=== PATIENT | male | born 1960 | race Caucasian/White ===

== ENCOUNTER 2019-08-22 08:29 | Outpatient (CLI) | payer OTHER, SELFPAY ==
[2019-08-22 09:16] LABS: Hemoglobin A1C 5.9 % (<5.7)
[2019-08-22 09:34] LABS: Alanine Aminotransferase 38 U/L (16-63); Albumin Level 3.5 g/dL (3.4-5.0); Alkaline Phosphatase 50 U/L (46-116); Anion Gap 10.8 mmol/L (7-16); Aspartate Amino Transferase 16 U/L (15-37); Bilirubin,Total 0.6 mg/dL (0.00-1.00); Blood Urea Nitrogen 24 mg/dL (7-18); Calcium 9.1 mg/dL (8.5-10.1); Carbon Dioxide 30 mmol/L (21-32); Chloride 102 mmol/L (98-108); Estimated Glomerular Filt Rate > 60; Glucose 99 mg/dL (70-99); Osmolality Calculated 290 mOsm/kg (285-295); Potassium 4.8 mmol/L (3.5-5.1); Prostate Specific Antigen 4.6 ng/mL (< OR = 4.0); Sodium 138 mmol/L (136-145); Total Protein 6.7 g/dL (6.4-8.2)
== END 2019-08-22 08:30 | disposition home or self-care (01) ==
PROVIDERS: PCP Internal Medicine; Visit Provider Internal Medicine
DX: R97.20 Elevated prostate specific antigen [PSA] (principal); R73.01 Impaired fasting glucose
CPT/HCPCS: 36415; 80053; 83036; 84153

== ENCOUNTER 2020-02-10 09:35 | Outpatient (CLI) | payer OTHER, SELFPAY ==
[2020-02-10 09:48] LABS: Appearance Urine Clear (Clear); Bilirubin Urine Negative (Negative); Color Urine Yellow (Yellow); Glucose Urine UA Negative (Negative); Ketones Urine Negative (Negative); Leukocyte Esterase Ur Negative (Negative); Nitrate Urine Negative (Negative); Protein Urine Negative (Negative); Specific Grav Ur 1.025 (1.010-1.020); Urobilinogen Urine 0.2 mg/dL (0.2-1.0); pH Urine 5.5 (5.0-8.0)
[2020-02-10 10:04] LABS: Add Urine Microscopic? YES; Blood Urine Trace-Intact (Negative); RBC Urine 0-2 /hpf (0-2)
[2020-02-10 10:05] LABS: Bacteria Urine None seen /hpf; Mucus Urine Few /lpf; Squamous Epithelial Cell Urine Rare /hpf (Few); WBC Urine None seen /hpf (0-3)
[2020-02-10 10:12] LABS: Hemoglobin A1C 5.8 % (<5.7)
[2020-02-10 11:28] LABS: Alanine Aminotransferase 44 U/L (16-63); Albumin Level 3.9 g/dL (3.4-5.0); Alkaline Phosphatase 48 U/L (46-116); Anion Gap 7 mmol/L (8-16); Aspartate Amino Transferase 18 U/L (15-37); Bilirubin,Total 0.9 mg/dL (0.00-1.00); Blood Urea Nitrogen 25 mg/dL (7-18); Carbon Dioxide 27 mmol/L (21-32); Chloride 102 mmol/L (98-108); Cholesterol 197 mg/dL (0-200); Creatine Kinase 113 U/L (39-308); Estimated Glomerular Filt Rate > 60; Glucose 91 mg/dL (70-99); HDL Direct 46 mg/dL (40-60); LDL Cholesterol Calculated 130 mg/dL (<130); Magnesium 1.9 mg/dL (1.8-2.4); Osmolality Calculated 286 mOsm/kg (285-295); Potassium 4.8 mmol/L (3.5-5.1); Prostate Specific Antigen 3.2 ng/mL (< OR = 4.0); Sodium 136 mmol/L (136-145); Total Protein 7.2 g/dL (6.4-8.2); Triglycerides 106 mg/dL (0-150)
== END 2020-02-10 09:36 | disposition home or self-care (01) ==
LOC: CHSLAB 09:37
PROVIDERS: PCP Internal Medicine; Visit Provider Internal Medicine
DX: R73.01 Impaired fasting glucose (principal); I49.3 Ventricular premature depolarization; I10 Essential (primary) hypertension; R97.20 Elevated prostate specific antigen [PSA]
CPT/HCPCS: 36415; 80053; 80061; 81001; 82550; 83036; 83735; 84153

== ENCOUNTER 2020-05-29 15:25 | Outpatient (CLI) | payer OTHER, SELFPAY ==
--- NOTE | ~2020-05-29 | XR_ITS ---
EXAMINATION:XR_CERV2-3V_CR DATE: 05/29/2020 15:52 INDICATION: Neck pain TECHNIQUE: AP, lateral, and odontoid views of the cervical spine are provided. COMPARISON: None FINDINGS: There are 2 mm of retrolisthesis of C5 on C6. The odontoid is intact. No fracture is identi fied. The vertebral body heights are normal. There is moderate to severe loss of intervertebral disc space height at C5-6 and C6-7. Degenerative osteophytes project from the anterior endplates at these levels. The odontoid is intact. Prevertebral soft tissues are normal. There is severe uncovertebral j oint osteoarthritis at C5-6 and C6-7. IMPRESSION: 1. Severe cervical spondylosis at C5-6 and C6-7 without acute findings. Reviewed, dictated and finalized at location A.
== END 2020-05-29 15:26 | disposition home or self-care (01) ==
LOC: CHSIMG 15:27
PROVIDERS: PCP Internal Medicine; Visit Provider Internal Medicine
DX: M54.2 Cervicalgia (principal)
CPT/HCPCS: 72040

== ENCOUNTER → 2020-06-08 14:45 | Outpatient (CLI) | payer OTHER, SELFPAY ==
--- NOTE | ~2020-06-08 | MR_ITS ---
EXAMINATION: MR cervical spine wo con DATE: 06/08/2020 15:28 INDICATION: Neck pain. TECHNIQUE: Magnetic resonance imaging (MRI) of the cervical spine was performed without intravenous c ontrast. Sequences included sagittal T2-weighted FSE, sagittal STIR FSE, sagittal T1-weighted FSE, ax ial MERGE, and axial T2-weighted FSE. COMPARISON: Cervical spine radiograph 05/29/2020 FINDINGS: There is 4 degrees dextrocurvature of cervical spine. There is hypolordosis of cervical spi ne. Vertebral body heights are normal. There is moderately decreased disc height at C5-C6 and C6-C7. There is increased T2-weighted signal intensity in the spinal cord at C5-C6, consistent with myelomal acia. The following disc levels are specifically discussed: C2-C3: The disc does not extend beyond the endplate margin. There is mild left uncovertebral joint os teoarthritis. There is moderate bilateral facet joint osteoarthritis. There is mild left neural kimmy inal stenosis. There is no central canal stenosis. C3-C4: The disc is bulging. There is severe bilateral uncovertebral joint osteoarthritis. There is se lynette bilateral facet joint osteoarthritis. There is severe right and moderate left neural foraminal s tenosis. There is mild central canal stenosis with ventral indentation of the spinal cord. C4-C5: The disc is bulging. There is mild bilateral uncovertebral joint osteoarthritis. There is mild right and moderate left facet joint osteoarthritis. There is mild bilateral neural foraminal stenosi s. There is mild central canal stenosis with ventral indentation of the spinal cord. C5-C6: The disc is bulging. There is severe bilateral uncovertebral joint osteoarthritis. There is se lynette right and mild left facet joint osteoarthritis. There is severe bilateral neural foraminal steno sis. There is moderate central canal stenosis with ventral and dorsal indentation of the spinal cord. C6-C7: The disc is bulging. There is severe bilateral uncovertebral joint osteoarthritis. There is mi ld bilateral facet joint osteoarthritis. There is mild bilateral neural foraminal stenosis. There is mild central canal stenosis. C7-T1: The disc does not extend beyond the endplate margin. There is mild left uncovertebral joint os teoarthritis. There is moderate bilateral facet joint osteoarthritis. There is mild left neural kimmy inal stenosis. There is no central canal stenosis. IMPRESSION: 1. Myelomalacia at C5-C6. 2. Severe cervical spondylosis. Reviewed, dictated and finalized at location A.
== END ==
PROVIDERS: PCP Internal Medicine; Visit Provider Internal Medicine
DX: M47.892 Other spondylosis, cervical region (principal)
CPT/HCPCS: 72141

== ENCOUNTER 2021-01-15 07:52 | Outpatient (CLI) | payer OTHER, SELFPAY ==
[2021-01-15 08:01] LABS: Basophils Absolute Auto 0.04 K/mm3 (0.00-0.10); Basophils Percent Auto 0.6 % (0.0-1.0); Eosinophils Absolute Auto 0.15 K/mm3 (0.02-0.50); Eosinophils Percent Auto 2.2 % (1.0-6.0); Hematocrit 43.9 % (40.0-54.0); Hemoglobin 14.6 g/dL (14.0-18.0); Immature Granulocyte Absolute 0.01 K/mm3 (0.00-0.00); Immature Granulocyte Percent A 0.1 % (0.0-0.0); Lymphocytes Absolute Auto 2.22 K/mm3 (1.10-4.50); Lymphocytes Percent Auto 33.1 % (18.0-42.0); Mean Corpuscular HGB Conc 33.3 g/dL (32.0-36.0); Mean Corpuscular Hemoglobin 31.1 pg (27.0-31.0); Mean Corpuscular Volume 93.6 fL (78.0-102.0); Mean Platelet Volume 9.2 fl (8.7-11.0); Monocytes Percent Auto 7.5 % (2.0-11.0); Neutrophils Absolute Auto 3.8 K/mm3 (1.7-7.2); Neutrophils Percent Auto 56.5 % (50.0-70.0); Platelet Count Result 225 K/mm3 (150-420); Red Blood Count 4.69 M/mm3 (4.70-6.10); Red Cell Distribution Width 13.2 % (11.6-14.4); White Blood Count 6.7 K/mm3 (4.8-10.8)
[2021-01-15 08:09] LABS: Appearance Urine Clear (Clear); Bilirubin Urine Negative (Negative); Color Urine Light Yellow (Yellow); Glucose Urine UA Negative (Negative); Ketones Urine Negative (Negative); Leukocyte Esterase Ur Negative (Negative); Nitrate Urine Negative (Negative); Protein Urine Negative (Negative); Specific Grav Ur 1.025 (1.010-1.020); Urobilinogen Urine 0.2 mg/dL (0.2-1.0)
[2021-01-15 08:22] LABS: Add Urine Microscopic? YES; Bacteria Urine Trace /hpf; Blood Urine Trace-Intact (Negative); RBC Urine None seen /hpf (0-2); WBC Urine None seen /hpf (0-3)
[2021-01-15 08:32] LABS: Creatinine Urine 90.94 mg/dL (40-278)
[2021-01-15 08:39] LABS: Hemoglobin A1C 5.9 % (<5.7)
[2021-01-15 09:03] LABS: MALB Creatinine Ratio 14.2 mg/g (0-30); Microalbumin Urine Random < 13.0 mg/L
[2021-01-15 09:38] LABS: Alanine Aminotransferase 42 U/L (16-63); Albumin Level 3.7 g/dL (3.4-5.0); Alkaline Phosphatase 50 U/L (46-116); Anion Gap 11 mmol/L (8-16); Aspartate Amino Transferase 18 U/L (15-37); Bilirubin,Total 0.9 mg/dL (0.00-1.00); Blood Urea Nitrogen 22 mg/dL (7-18); Calcium 8.7 mg/dL (8.5-10.1); Carbon Dioxide 25 mmol/L (21-32); Chloride 106 mmol/L (98-108); Cholesterol 190 mg/dL (0-200); Creatine Kinase 145 U/L (39-308); Estimated Glomerular Filt Rate > 60; Glucose 93 mg/dL (70-99); HDL Direct 43 mg/dL (40-60); LDL Cholesterol Calculated 136 mg/dL (<130); Osmolality Calculated 297 mOsm/kg (285-295); Potassium 4.6 mmol/L (3.5-5.1); Prostate Specific Antigen 5.4 ng/mL (< OR = 4.0); Sodium 142 mmol/L (136-145); Total Protein 6.7 g/dL (6.4-8.2); Triglycerides 53 mg/dL (0-150)
== END 2021-01-15 07:53 | disposition home or self-care (01) ==
LOC: CHSLAB 07:53
PROVIDERS: PCP Internal Medicine; Visit Provider Internal Medicine
DX: Z00.00 Encounter for general adult medical examination without abnormal findings (principal); R97.20 Elevated prostate specific antigen [PSA]
CPT/HCPCS: 36415; 80053; 80061; 81001; 82043; 82550; 83036; 84153; 85025

== ENCOUNTER 2021-01-29 11:16 | Outpatient (CLI) | payer OTHER, SELFPAY ==
[2021-02-02 13:40] LABS: Vitamin D 25 Hydroxy 33 ng/mL (30-100)
== END 2021-01-29 11:17 | disposition home or self-care (01) ==
LOC: CHSLAB 11:17
PROVIDERS: PCP Internal Medicine; Visit Provider Internal Medicine
DX: E55.9 Vitamin D deficiency, unspecified (principal)
CPT/HCPCS: 36415; 82306

== ENCOUNTER 2021-02-12 10:05 | Outpatient (CLI) | payer OTHER, SELFPAY ==
--- NOTE | ~2021-02-12 | CT_ITS ---
EXAMINATION: CT sinus wo con DATE: 02/12/2021 10:19 INDICATION: Chronic pansinusitis TECHNIQUE: Computed tomography (CT) of the paranasal sinuses was performed without intravenous contra st. The dose-length product was 283.39 mGy-cm. Automated exposure control and iterative reconstructio n technique were employed. COMPARISON: None FINDINGS: There is mild mucosal thickening of the left frontal and ethmoid sinuses. No air-fluid leve ls. Rightward nasal septal deviation. Ostiomeatal units are patent. Mastoids are pneumatized. IMPRESSION: 1. Mild left frontal and ethmoid sinus disease. Reviewed, dictated and finalized at location A. 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
== END 2021-02-12 10:06 | disposition home or self-care (01) ==
LOC: CHSIMG 10:05
PROVIDERS: PCP Internal Medicine; Visit Provider Internal Medicine
DX: J32.4 Chronic pansinusitis (principal)
CPT/HCPCS: 70486

== ENCOUNTER 2021-04-25 07:46 | Outpatient (CLI) | payer OTHER, SELFPAY ==
[2021-04-25 13:05] LABS: Prostate Specific Antigen 5.1 ng/mL (< OR = 4.0)
== END 2021-04-25 07:47 | disposition home or self-care (01) ==
LOC: CHSLAB 07:48
PROVIDERS: PCP Internal Medicine; Visit Provider Internal Medicine
DX: R97.20 Elevated prostate specific antigen [PSA] (principal)
CPT/HCPCS: 36415; 84153

== ENCOUNTER 2021-05-02 00:11 | Day surgery (SDC) | payer OTHER, SELFPAY ==
[2021-03-18 14:57] VITALS: BMI 28.4
--- NOTE | 2021-05-01 12:00 | P.PNAN_ITS ---
Anes - Initial Pre Proc Eval Procedure: Operation Date: 05/02/21 10:15 Proposed Procedures p Screening Colonoscopy - Moy Quispe MD Date/Time: 05/01/21 12:00 Surgeon: Moy Quispe MD Pre Op Diagnosis: hx of colon polyps, neoplasm screening Patient Data Age: 60 Gender: M Height: 1.83 m Weight: 95 kg Allergies Allergy/AdvReac Type Severity Reaction Status Date / Time No Known Allergies Allergy Verified 05/02/21 09:24 Home Medications Medication Instructions Recorded Confirmed Type aspirin 81 mg tablet,delayed 81 mg PO DAILY 02/19/21 05/02/21 History release cholecalciferol (vitamin D3) 25 25 mcg PO DAILY 02/19/21 05/02/21 History mcg (1,000 unit) capsule diclofenac sodium 75 mg 75 mg PO BID PRN 02/19/21 05/02/21 History tablet,delayed release fluticasone propionate 50 1 spray INTRANASAL DAILY 02/19/21 05/02/21 History mcg/actuation nasal spray,suspension ipratropium bromide 42 mcg (0.06 2 spray INTRANASAL TID 02/19/21 05/02/21 History %) nasal spray lisinopril 20 mg tablet 20 mg PO DAILY 02/19/21 05/02/21 History lovastatin 20 mg tablet 20 mg PO DAILY 02/19/21 05/02/21 History niacin 500 mg tablet 500 mg PO DAILY 02/19/21 05/02/21 History magnesium oxide 400 mg PO 3XW 03/18/21 05/02/21 History tamsulosin 0.8 mg PO DAILY 03/18/21 05/02/21 History Patient hx anesthesia problems: none Family hx anesthesia problems: none Results Review: All pre-operative results and documents have been reviewed as part of the pre-operative evaluation. [facility] Past Medical History Medical History (Updated 05/02/21 @ 09:39 by Moy Quispe MD) Arrhythmia Hyperlipidemia Hypertension Rheumatoid arthritis Family History Family History Father Cancer Hypertension Heart disease Cerebrovascular accident Mother Diabetes mellitus Hypertension Sibling Hypertension Social History Social History Smoking packs per day: 1 Smoking cigarettes per day: 20.0 Years smoked: 15 Smoking pack-years: 15.00 Smoking status: Never smoker Tobacco type: cigarettes Alcohol intake: current Drinks per week: 1 Alcohol use details: occassion Substance use: never Substance use type: does not use Living arrangements: with family Spiritual care concerns: No Anes - Eval Final PreProcedure Day of Procedure 05/01/21 12:00 Patient weight: overweight Heart: regular rate and rhythm Lungs: clear to auscultation and normal air movement Airway: Mallampati scale class II Neurological: alert and oriented Last oral intake: >/= 8 hours ASA classification: III Emergent: no Anesthetic plan: proceed Anesthesia type and monitoring: general GIVS and standard monitoring Results Review: All pre-operative results and documents have been reviewed as part of the pre-operative evaluation. Informed Consent: The patient's anesthetic plan and its attendant risks and benefits were discussed with the patient/family/POA. Questions were solicited and answers provided to the satisfaction of the patient/family/POA.
[2021-05-02 09:15] VITALS: BP 136/79; PULSE 81; RESP 18; TEMP 37.1; O2SAT 99; BMI 28.3
[2021-05-02] MEDS: LACTATED RINGERS 1,000 ML 150 ML IV CONT (09:34)
--- NOTE | 2021-05-02 09:37 | WPDGICN ---
Assessment and Plan Assessment and plan (1) History of colon polyps: Code(s): Z86.010 - Personal history of colonic polyps Status: Acute Assessment and Plan: Patient has a personal history of colon polyp some years ago. He presents today for surveillance examination. (2) Family history of colon cancer in father: Code(s): Z80.0 - Family history of malignant neoplasm of digestive organs Status: Acute Assessment and Plan: Patient's father had colon cancer. Plan is for patient to have surveillance colonoscopy at 5 year intervals. GI Consult Note Consult date/time: 05/02/21 09:37 HPI: Pete Knight is a 60 year old male Presents for screening colonoscopy. Patient reports his weight appetite and bowel movements are normal. He denies abdominal pain. He he has had no bleeding. In the past he had colon polyps. Most recent colonoscopy 2015 revealed no polyps. Family history is significant for polyps, his father had colon cancer. Patient presents today for neoplasia screening. Review of Systems Review of Systems: All systems reviewed & are unremarkable except as noted in HPI and below PMFSH Past Medical History Medical History (Updated 05/02/21 @ 09:39 by Moy Quispe MD) Arrhythmia Hyperlipidemia Hypertension Rheumatoid arthritis Family History Family History Father Cancer Hypertension Heart disease Cerebrovascular accident Mother Diabetes mellitus Hypertension Sibling Hypertension Social History Social History Smoking packs per day: 1 Smoking cigarettes per day: 20.0 Years smoked: 15 Smoking pack-years: 15.00 Smoking status: Never smoker Tobacco type: cigarettes Alcohol intake: current Drinks per week: 1 Alcohol use details: occassion Substance use: never Substance use type: does not use Living arrangements: with family Spiritual care concerns: No Meds Home Medications and Allergies Home Medications Medication Instructions Recorded Confirmed Type aspirin 81 mg tablet,delayed 81 mg PO DAILY 02/19/21 05/02/21 History release cholecalciferol (vitamin D3) 25 25 mcg PO DAILY 02/19/21 05/02/21 History mcg (1,000 unit) capsule diclofenac sodium 75 mg 75 mg PO BID PRN 02/19/21 05/02/21 History tablet,delayed release fluticasone propionate 50 1 spray INTRANASAL DAILY 02/19/21 05/02/21 History mcg/actuation nasal spray,suspension ipratropium bromide 42 mcg (0.06 2 spray INTRANASAL TID 02/19/21 05/02/21 History %) nasal spray lisinopril 20 mg tablet 20 mg PO DAILY 02/19/21 05/02/21 History lovastatin 20 mg tablet 20 mg PO DAILY 02/19/21 05/02/21 History niacin 500 mg tablet 500 mg PO DAILY 02/19/21 05/02/21 History magnesium oxide 400 mg PO 3XW 03/18/21 05/02/21 History tamsulosin 0.8 mg PO DAILY 03/18/21 05/02/21 History Allergies Allergy/AdvReac Type Severity Reaction Status Date / Time No Known Allergies Allergy Verified 05/02/21 09:24 Vital Signs Vital Signs - 24 hr 05/02/21 09:15 Temperature 98.7 F Pulse Rate 81 Respiratory Rate 18 Blood Pressure 136/79 Pulse Oximetry 99 Exam Narrative: Physical exam reveals patient to be alert. Vital signs stable. HEENT exam is unremarkable. Patient is anicteric. Lungs are clear to auscultation and percussion. Heart is without murmur or extra sounds. Abdominal exam bowel sounds are present soft nontender with no organomegaly. Digital external rectal exam is normal.
[2021-05-02 10:31] VITALS: BP 114/73; PULSE 88; RESP 19; O2SAT 97
[2021-05-02 10:41] VITALS: BP 132/86; PULSE 82; RESP 25; O2SAT 97
[2021-05-02 10:51] VITALS: BP 127/83; PULSE 78; RESP 23; O2SAT 98
== END 2021-05-02 10:58 | disposition home or self-care (01) ==
PROVIDERS: PCP Internal Medicine; Visit Provider Internal Medicine Gastroenterology
PROC: 0DJD8ZZ Inspection of Lower Intestinal Tract, Via Natural or Artificial Opening Endoscopic (ICD-10-PCS; CPT 45378; principal; 2021-05-02 10:15)
DX: Z12.11 Encounter for screening for malignant neoplasm of colon (principal); K57.30 Diverticulosis of large intestine without perforation or abscess without bleeding; Z86.010 Personal history of colon polyps; Z80.0 Family history of malignant neoplasm of digestive organs; E78.5 Hyperlipidemia, unspecified; I10 Essential (primary) hypertension; M06.9 Rheumatoid arthritis, unspecified; Z87.891 Personal history of nicotine dependence
CPT/HCPCS: 45378; J2704; J7120

== ENCOUNTER 2021-07-04 13:38 | Outpatient (CLI) | payer OTHER, SELFPAY ==
[2021-07-04 14:48] LABS: SARS-CoV-2 RNA PCR Positive (Negative)
== END 2021-07-04 13:39 | disposition home or self-care (01) ==
LOC: CHSLAB 13:40
PROVIDERS: PCP Internal Medicine; Visit Provider Nurse Practitioner Family
DX: U07.1 COVID-19 (principal); J06.9 Acute upper respiratory infection, unspecified; R50.9 Fever, unspecified
CPT/HCPCS: C9803; U0003; U0005

== ENCOUNTER 2021-07-11 16:33 | Outpatient (CLI) | payer OTHER, SELFPAY ==
--- NOTE | ~2021-07-11 | XR_ITS ---
EXAMINATION: XR sacroiliac joints min 3V DATE: 07/11/2021 16:57 INDICATION: Low back pain. Sacroiliac joint arthritis. TECHNIQUE: 3 views of the sacroiliac joints were obtained. COMPARISON: None. FINDINGS: Bone alignment is normal. No fracture. There is mild osteoarthritis of the sacroiliac joint s. No evidence of inflammatory arthropathy. IMPRESSION: 1. Mild osteoarthritis of the sacroiliac joints. Reviewed, dictated and finalized at location A.
--- NOTE | ~2021-07-11 | XR_ITS ---
XR lumbar spine 2-3V 07/11/2021 16:57 Indication: Low back pain. Arthritis. Procedure: 3 views lumbar spine Comparison: 08/18/2018 Findings: There is disc narrowing at L3-4, L4-5 and L5-S1. There is facet hypertrophy at these levels . No acute fracture or traumatic malalignment. No evidence for spondylolisthesis. Pedicles intact. Sa cral foramen are symmetric. Impression: 1: Mild-moderate lumbar spondylosis. Reviewed, dictated and finalized at location B. Impression: 1: Mild-moderate lumbar spondylosis.
== END 2021-07-11 16:34 | disposition home or self-care (01) ==
LOC: CHSIMG 16:35
PROVIDERS: PCP Internal Medicine; Visit Provider Internal Medicine
DX: M54.50 Low back pain, unspecified (principal)
CPT/HCPCS: 72100; 72202

== ENCOUNTER 2021-07-30 09:20 | Outpatient (CLI) | payer OTHER, SELFPAY ==
--- NOTE | ~2021-07-30 | XR_ITS ---
EXAMINATION: XR sacroiliac jt inj w imag LT DATE: 07/30/2021 10:33 INDICATION: Left-sided lumbar radiculopathy and sciatica. TECHNIQUE: A time-out was performed to verify the patient's name, date of , and procedure to b e performed. The procedure including the risks, benefits, and alternatives was discussed with the pat ient. Risks discussed included bleeding and infection. The patient understood the risks and agreed to proceed. The skin overlying the left sacroiliac joint was prepped and draped in usual sterile fashi on. Anesthetic was administered with 1% lidocaine subcutaneously. A 22 G needle was advanced under fluoroscopic guidance into the joint. Subsequently, injectate consisting of 1 mL 1% lidocaine, 1 mL 4 0 mg/mL Kenalog, and 1 mL 4 mg/mL dexamethasone was instilled. The needle was removed and the entry site was cleaned and dressed. There were no immediate complications. Fluoroscopy exposure time was 0 .0 minutes. The total number of images was 1. FINDINGS: Real-time fluoroscopy demonstrates the needle in the left sacroiliac joint. Patient's pain prior to procedure:1/10. Patient's pain following the procedure: 0/10. IMPRESSION: 1. Fluoroscopy guided left sacroiliac joint injection of local anesthetic and steroid with decrease i n the patient's presenting pain. Reviewed, dictated and finalized at location A. IMPRESSION: 1. Fluoroscopy guided left sacroiliac joint injection of local anesthetic and s teroid with decrease in the patient's presenting pain.
== END 2021-07-30 09:21 | disposition home or self-care (01) ==
PROVIDERS: PCP Internal Medicine; Visit Provider Internal Medicine
DX: M54.16 Radiculopathy, lumbar region (principal)
CPT/HCPCS: 27096; G0260; J1100; J3301

== ENCOUNTER 2021-08-01 07:08 | Outpatient (CLI) | payer OTHER, SELFPAY ==
[2021-08-01 07:35] LABS: Basophils Absolute Auto 0.07 K/mm3 (0.00-0.10); Basophils Percent Auto 0.8 % (0.0-1.0); Eosinophils Absolute Auto 0.15 K/mm3 (0.02-0.50); Eosinophils Percent Auto 1.7 % (1.0-6.0); Hematocrit 40.5 % (40.0-54.0); Hemoglobin 13.4 g/dL (14.0-18.0); Immature Granulocyte Absolute 0.03 K/mm3 (0.00-0.00); Immature Granulocyte Percent A 0.3 % (0.0-0.0); Lymphocytes Absolute Auto 3.58 K/mm3 (1.10-4.50); Lymphocytes Percent Auto 40.1 % (18.0-42.0); Mean Corpuscular HGB Conc 33.1 g/dL (32.0-36.0); Mean Corpuscular Hemoglobin 31.3 pg (27.0-31.0); Mean Corpuscular Volume 94.6 fL (78.0-102.0); Mean Platelet Volume 9.6 fl (8.7-11.0); Monocytes Absolute Auto 0.65 K/mm3 (0.10-0.90); Monocytes Percent Auto 7.3 % (2.0-11.0); Neutrophils Absolute Auto 4.5 K/mm3 (1.7-7.2); Neutrophils Percent Auto 49.8 % (50.0-70.0); Platelet Count Result 232 K/mm3 (150-420); Red Blood Count 4.28 M/mm3 (4.70-6.10); Red Cell Distribution Width 13.2 % (11.6-14.4); White Blood Count 8.9 K/mm3 (4.8-10.8)
[2021-08-01 07:36] LABS: Add Urine Microscopic? NO; Appearance Urine Clear (Clear); Bilirubin Urine Negative (Negative); Blood Urine Negative (Negative); Color Urine Yellow (Yellow); Glucose Urine UA Negative (Negative); Ketones Urine Negative (Negative); Leukocyte Esterase Ur Negative (Negative); Nitrate Urine Negative (Negative); Protein Urine Negative (Negative); Specific Grav Ur 1.025 (1.010-1.020); Urobilinogen Urine 0.2 mg/dL (0.2-1.0)
[2021-08-01 08:08] LABS: Alanine Aminotransferase 42 U/L (16-63); Albumin Level 3.6 g/dL (3.4-5.0); Alkaline Phosphatase 50 U/L (46-116); Anion Gap 10 mmol/L (8-16); Aspartate Amino Transferase 17 U/L (15-37); Bilirubin,Total 0.7 mg/dL (0.00-1.00); Blood Urea Nitrogen 27 mg/dL (7-18); Calcium 8.4 mg/dL (8.5-10.1); Carbon Dioxide 26 mmol/L (21-32); Chloride 106 mmol/L (98-108); Cholesterol 168 mg/dL (0-200); Creatine Kinase 175 U/L (39-308); Estimated Glomerular Filt Rate > 60; Free T3 2.76 pg/mL (2.18-3.98); Glucose 96 mg/dL (70-99); HDL Direct 40 mg/dL (40-60); LDL Cholesterol Calculated 114 mg/dL (<130); Osmolality Calculated 299 mOsm/kg (285-295); Potassium 4.1 mmol/L (3.5-5.1); Sodium 142 mmol/L (136-145); Thyroid Stimulating Hormone 3.66 uIU/mL (0.36-3.74); Triglycerides 72 mg/dL (0-150)
== END 2021-08-01 07:09 | disposition home or self-care (01) ==
LOC: CHSLAB 07:11
PROVIDERS: PCP Internal Medicine; Visit Provider Internal Medicine
DX: E78.2 Mixed hyperlipidemia (principal); I10 Essential (primary) hypertension; R73.01 Impaired fasting glucose; I49.3 Ventricular premature depolarization; J32.4 Chronic pansinusitis
CPT/HCPCS: 36415; 80053; 80061; 81003; 82550; 83036; 83735; 84439; 84443; 84481; 85025

== ENCOUNTER 2021-08-19 10:17 | Outpatient (CLI) | payer OTHER, SELFPAY ==
[2021-08-19 10:33] LABS: Immature Reticulocyte Fraction 8.1 % (2.0-16.52); Reticulocyte Hemoglobin Conten 36.2 pg (28.0-35.0); Reticulocyte Percent 1.52 % (0.50-1.50); Reticulocytes Absolute 0.07 M/mm3 (0.02-0.1)
[2021-08-19 11:32] LABS: Ferritin 267 ng/mL (26-388); Iron 106 ug/dL (65-175); Percent Iron Saturation 41 % (12-57); Vitamin B12 338 pg/mL (193-986)
[2021-08-22 05:04] LABS: Red Blood Cell Folate 583 ng/mL RBC (>280)
== END 2021-08-19 10:18 | disposition home or self-care (01) ==
LOC: CHSLAB 10:19
PROVIDERS: PCP Internal Medicine; Visit Provider Internal Medicine
DX: I49.3 Ventricular premature depolarization (principal); D64.9 Anemia, unspecified
CPT/HCPCS: 36415; 82607; 82728; 82747; 83540; 83550; 85046

== ENCOUNTER 2021-10-29 10:49 | Outpatient (CLI) | payer OTHER, SELFPAY | END 2021-10-29 10:50 | disposition home or self-care (01) | LOC: CHSLAB 10:52 | PROVIDERS: PCP Internal Medicine; Visit Provider Specialist | DX: C44.41 Basal cell carcinoma of skin of scalp and neck (principal) | CPT/HCPCS: 88305 ==

== ENCOUNTER 2021-11-11 13:56 | Outpatient (CLI) | payer OTHER, SELFPAY ==
[2021-11-11 14:16] LABS: Basophils Absolute Auto 0.01 K/mm3 (0.00-0.10); Basophils Percent Auto 0.2 % (0.0-1.0); Eosinophils Absolute Auto 0.03 K/mm3 (0.02-0.50); Eosinophils Percent Auto 0.6 % (1.0-6.0); Hematocrit 41.4 % (40.0-54.0); Immature Granulocyte Absolute 0.01 K/mm3 (0.00-0.00); Immature Granulocyte Percent A 0.2 % (0.0-0.0); Lymphocytes Absolute Auto 1.43 K/mm3 (1.10-4.50); Lymphocytes Percent Auto 27.4 % (18.0-42.0); Mean Corpuscular HGB Conc 33.8 g/dL (32.0-36.0); Mean Corpuscular Volume 94.7 fL (78.0-102.0); Mean Platelet Volume 9.5 fl (8.7-11.0); Monocytes Absolute Auto 0.45 K/mm3 (0.10-0.90); Monocytes Percent Auto 8.6 % (2.0-11.0); Neutrophils Absolute Auto 3.3 K/mm3 (1.7-7.2); Platelet Count Result 180 K/mm3 (150-420); Red Blood Count 4.37 M/mm3 (4.70-6.10); Red Cell Distribution Width 12.9 % (11.6-14.4); White Blood Count 5.2 K/mm3 (4.8-10.8)
[2021-11-11 14:33] LABS: SARS-CoV-2 Ag Negative (Negative)
[2021-11-11 15:05] LABS: Alanine Aminotransferase 42 U/L (16-63); Albumin Level 3.7 g/dL (3.4-5.0); Alkaline Phosphatase 51 U/L (46-116); Anion Gap 6 mmol/L (8-16); Aspartate Amino Transferase 21 U/L (15-37); Bilirubin,Total 0.9 mg/dL (0.00-1.00); Blood Urea Nitrogen 21 mg/dL (7-18); Calcium 8.8 mg/dL (8.5-10.1); Carbon Dioxide 28 mmol/L (21-32); Chloride 105 mmol/L (98-108); Estimated Glomerular Filt Rate > 60; Free T3 2.68 pg/mL (2.18-3.98); Glucose 98 mg/dL (70-99); Magnesium 1.9 mg/dL (1.8-2.4); Osmolality Calculated 291 mOsm/kg (285-295); Sodium 139 mmol/L (136-145); Thyroid Stimulating Hormone 2.03 uIU/mL (0.36-3.74); Total Protein 6.5 g/dL (6.4-8.2); Vitamin B12 934 pg/mL (193-986)
[2021-11-12 16:41] LABS: Free T4 Free Thyroxine 0.89 ng/dL (0.76-1.46)
== END 2021-11-11 13:57 | disposition home or self-care (01) ==
LOC: CHSLAB 14:01
PROVIDERS: PCP Internal Medicine; Visit Provider Internal Medicine
DX: I49.3 Ventricular premature depolarization (principal); D64.9 Anemia, unspecified; J32.9 Chronic sinusitis, unspecified; Z20.822 Contact with and (suspected) exposure to COVID-19
CPT/HCPCS: 36415; 80053; 82607; 83735; 84439; 84443; 84481; 85025; 87426; C9803

== ENCOUNTER 2021-11-12 10:32 | Outpatient (CLI) | payer OTHER, SELFPAY ==
--- NOTE | 2021-12-05 12:47 | P.PCNHOL_ITS ---
Holter/Event Monitor Holter/Event Monitor Date of procedure: 12/05/21 Holter/Event Procedure: Event Monitor Indications: PVC Conclusion: 1. 18 days event monitor between 11/12/21-12/05/21. There are 28 available trans missions for analysis. 2. Predominant rhythm is sinus rhythm. HR range 52-175 bpm; average HR 84 bpm. HR at 175 bpm was on 11/23/21 at 14:59. 3. There are occasional premature supraventricular complexes with total burden of <1%. No supraventricular tachycardia. 4. There are occasional premature ventricular complexes with total burden of 1%. There is 1 episode of ventricular tachycardia at 109 bpm lasting 4 beats on 11/16/21 at 04:53. 5. No significant pauses greater than 2 seconds. 6. Patient reports 8 episodes of symptoms of skipped beat which demonstrate sinus rhythm, HR range 69-101 bpm with 7 episodes with PVC's.
== END 2021-11-12 10:33 | disposition home or self-care (01) ==
LOC: CHSCARD 10:34
PROVIDERS: PCP Internal Medicine; Visit Provider Internal Medicine
DX: R00.2 Palpitations (principal)
CPT/HCPCS: 93270

== ENCOUNTER 2022-03-27 08:34 | Outpatient (CLI) | payer OTHER, SELFPAY ==
[2022-03-27 08:47] LABS: Basophils Absolute Auto 0.04 K/mm3 (0.00-0.10); Basophils Percent Auto 0.6 % (0.0-1.0); Eosinophils Absolute Auto 0.14 K/mm3 (0.02-0.50); Hematocrit 42.9 % (40.0-54.0); Immature Granulocyte Absolute 0.01 K/mm3 (0.00-0.00); Immature Granulocyte Percent A 0.1 % (0.0-0.0); Lymphocytes Absolute Auto 2.41 K/mm3 (1.10-4.50); Lymphocytes Percent Auto 34.7 % (18.0-42.0); Mean Corpuscular HGB Conc 32.6 g/dL (32.0-36.0); Mean Corpuscular Hemoglobin 31.2 pg (27.0-31.0); Mean Corpuscular Volume 95.5 fL (78.0-102.0); Mean Platelet Volume 9.4 fl (8.7-11.0); Monocytes Absolute Auto 0.46 K/mm3 (0.10-0.90); Monocytes Percent Auto 6.6 % (2.0-11.0); Neutrophils Absolute Auto 3.9 K/mm3 (1.7-7.2); Platelet Count Result 209 K/mm3 (150-420); Red Blood Count 4.49 M/mm3 (4.70-6.10); Red Cell Distribution Width 13.2 % (11.6-14.4); White Blood Count 6.9 K/mm3 (4.8-10.8)
[2022-03-27 08:48] LABS: Add Urine Microscopic? NO; Appearance Urine Clear (Clear); Bilirubin Urine Negative (Negative); Blood Urine Negative (Negative); Color Urine Light Yellow (Yellow); Glucose Urine UA Negative (Negative); Ketones Urine Negative (Negative); Leukocyte Esterase Ur Negative LEU/UL (Negative); Nitrate Urine Negative (Negative); Protein Urine Negative (Negative); Specific Grav Ur 1.025 (1.010-1.020); Urobilinogen Urine 0.2 mg/dL (0.2-1.0)
[2022-03-27 08:59] LABS: Creatinine Urine 130.85 mg/dL (40-278); MALB Creatinine Ratio 9.9 mg/g (0-30); Microalbumin Urine Random < 13.0 mg/L
[2022-03-27 09:07] LABS: Hemoglobin A1C 5.8 % (<5.7)
[2022-03-27 09:33] LABS: Alanine Aminotransferase 32 U/L (16-63); Albumin Level 3.6 g/dL (3.4-5.0); Alkaline Phosphatase 50 U/L (46-116); Anion Gap 7 mmol/L (8-16); Aspartate Amino Transferase 19 U/L (15-37); Bilirubin,Total 0.8 mg/dL (0.00-1.00); Blood Urea Nitrogen 24 mg/dL (7-18); Calcium 8.4 mg/dL (8.5-10.1); Carbon Dioxide 29 mmol/L (21-32); Chloride 106 mmol/L (98-108); Cholesterol 164 mg/dL (0-200); Creatine Kinase 59 U/L (39-308); Estimated Glomerular Filt Rate > 60; Glucose 104 mg/dL (70-99); HDL Direct 46 mg/dL (40-60); LDL Cholesterol Calculated 108 mg/dL (<130); Osmolality Calculated 298 mOsm/kg (285-295); Potassium 4.6 mmol/L (3.5-5.1); Prostate Specific Antigen 5.3 ng/mL (< OR = 4.0); Sodium 142 mmol/L (136-145); Total Protein 6.6 g/dL (6.4-8.2); Triglycerides 50 mg/dL (0-150)
== END 2022-03-27 08:35 | disposition home or self-care (01) ==
LOC: CHSLAB 08:36
PROVIDERS: PCP Internal Medicine; Visit Provider Internal Medicine
DX: I10 Essential (primary) hypertension (principal); R73.01 Impaired fasting glucose; R97.20 Elevated prostate specific antigen [PSA]; E78.2 Mixed hyperlipidemia; N39.0 Urinary tract infection, site not specified
CPT/HCPCS: 36415; 80053; 80061; 81003; 82043; 82550; 83036; 84153; 85025

== ENCOUNTER 2022-09-26 08:00 | Outpatient (CLI) | payer OTHER, SELFPAY ==
[2022-09-26 08:14] LABS: Basophils Absolute Auto 0.04 K/mm3 (0.00-0.10); Basophils Percent Auto 0.6 % (0.0-1.0); Eosinophils Absolute Auto 0.09 K/mm3 (0.02-0.50); Eosinophils Percent Auto 1.4 % (1.0-6.0); Hematocrit 46.7 % (40.0-54.0); Hemoglobin 15.6 g/dL (14.0-18.0); Immature Granulocyte Absolute 0.02 K/mm3 (0.00-0.00); Immature Granulocyte Percent A 0.3 % (0.0-0.0); Lymphocytes Percent Auto 31.5 % (18.0-42.0); Mean Corpuscular HGB Conc 33.4 g/dL (32.0-36.0); Mean Corpuscular Hemoglobin 31.8 pg (27.0-31.0); Mean Corpuscular Volume 95.1 fL (78.0-102.0); Mean Platelet Volume 9.3 fl (8.7-11.0); Monocytes Absolute Auto 0.45 K/mm3 (0.10-0.90); Monocytes Percent Auto 6.8 % (2.0-11.0); Neutrophils Percent Auto 59.4 % (50.0-70.0); Platelet Count Result 226 K/mm3 (150-420); Red Blood Count 4.91 M/mm3 (4.70-6.10); Red Cell Distribution Width 13.2 % (11.6-14.4); White Blood Count 6.7 K/mm3 (4.8-10.8)
[2022-09-26 08:16] LABS: Appearance Urine Clear (Clear); Bilirubin Urine Negative (Negative); Blood Urine Negative (Negative); Color Urine Light Yellow (Yellow); Glucose Urine UA Negative (Negative); Ketones Urine Negative (Negative); Leukocyte Esterase Ur Negative (Negative); Nitrate Urine Negative (Negative); Protein Urine Negative (Negative); Specific Grav Ur >= 1.030 (1.010-1.020); Urobilinogen Urine 0.2 mg/dL (0.2-1.0)
[2022-09-26 08:19] LABS: Add Urine Microscopic? NO
[2022-09-26 08:41] LABS: Hemoglobin A1C 5.9 % (<5.7)
[2022-09-26 09:13] LABS: Alanine Aminotransferase 41 U/L (16-63); Albumin Level 4.1 g/dL (3.4-5.0); Alkaline Phosphatase 56 U/L (46-116); Anion Gap 9 mmol/L (8-16); Aspartate Amino Transferase < 10 U/L (15-37); Bilirubin,Total 0.7 mg/dL (0.00-1.00); Blood Urea Nitrogen 24 mg/dL (7-18); Calcium 9.6 mg/dL (8.5-10.1); Carbon Dioxide 29 mmol/L (21-32); Chloride 105 mmol/L (98-108); Cholesterol 189 mg/dL (0-200); Estimated Glomerular Filt Rate > 60; Free T3 3.07 pg/mL (2.18-3.98); Free T4 Free Thyroxine 0.93 ng/dL (0.76-1.46); Glucose 102 mg/dL (70-99); HDL Direct 49 mg/dL (40-60); LDL Cholesterol Calculated 129 mg/dL (<130); Magnesium 1.8 mg/dL (1.8-2.4); Osmolality Calculated 300 mOsm/kg (285-295); Potassium 5.2 mmol/L (3.5-5.1); Sodium 143 mmol/L (136-145); Total Protein 7.6 g/dL (6.4-8.2); Triglycerides 57 mg/dL (0-150)
== END 2022-09-26 08:01 | disposition home or self-care (01) ==
LOC: CHSLAB 08:02
PROVIDERS: PCP Internal Medicine; Visit Provider Internal Medicine
DX: R97.20 Elevated prostate specific antigen [PSA] (principal); I10 Essential (primary) hypertension; E78.2 Mixed hyperlipidemia; R73.01 Impaired fasting glucose; I49.3 Ventricular premature depolarization
CPT/HCPCS: 36415; 80053; 80061; 81003; 83036; 83735; 84153; 84439; 84443; 84481; 85025

== ENCOUNTER 2022-10-23 14:53 | Outpatient (CLI) | payer OTHER, SELFPAY ==
--- NOTE | ~2022-10-23 | XR_ITS ---
EXAMINATION: XR hip RT min 2V DATE: 10/23/2022 15:10 INDICATION: Right hip pain. TECHNIQUE: 2 views of right hip were obtained. COMPARISON: Right hip radiographs 07/12/2008 FINDINGS: Bone alignment is normal. No fracture. There is mild right hip osteoarthritis. [place] over lie the pelvis. IMPRESSION: 1. Mild right hip osteoarthritis. Reviewed, dictated and finalized at location E.
== END 2022-10-23 14:54 | disposition home or self-care (01) ==
LOC: CHSIMG 14:55
PROVIDERS: PCP Internal Medicine; Visit Provider Internal Medicine
DX: M25.551 Pain in right hip (principal); M16.11 Unilateral primary osteoarthritis, right hip
CPT/HCPCS: 73502

== ENCOUNTER 2022-11-17 08:36 | Outpatient (CLI) | payer OTHER, SELFPAY ==
--- NOTE | ~2022-11-17 | XR_ITS ---
EXAMINATION: XR lg joint inject/asp w image DATE: 11/17/2022 09:36 INDICATION: Right hip pain. TECHNIQUE: A time-out was performed to verify the patient's name, date of , and procedure to b e performed. The procedure including the risks, benefits, and alternatives was discussed with the pat ient. Risks discussed included bleeding and infection. The patient understood the risks and agreed to proceed. The skin overlying the right hip joint was prepped and draped in usual sterile fashion. A nesthetic was administered with 1% lidocaine subcutaneously. A 22 G needle was advanced under fluoro scopic guidance into the joint. Subsequently, injectate consisting of 5 mL 1% lidocaine, 1 mL 40 mg/ mL Kenalog, and 1 mL 4 mg/mL dexamethasone was instilled. The needle was removed and the entry site was cleaned and dressed. There were no immediate complications. Fluoroscopy exposure time was 0.1 mi nutes. The total number of images was 1. FINDINGS: Real-time fluoroscopy demonstrates the needle in the right hip joint. Patient's pain prior to procedure:03/04. Patient's pain following the procedure: 03/04. IMPRESSION: 1. Fluoroscopy guided right hip joint injection of local anesthetic and steroid . Reviewed, dictated and finalized at location A.
== END 2022-11-17 08:37 | disposition home or self-care (01) ==
PROVIDERS: PCP Internal Medicine; Visit Provider Internal Medicine
DX: M25.551 Pain in right hip (principal)
CPT/HCPCS: 20610; 77002; J1100; J3301

== ENCOUNTER 2022-12-05 07:25 | Outpatient (CLI) | payer OTHER, SELFPAY ==
[2022-12-05 08:00] LABS: Cholesterol 152 mg/dL (0-200); HDL Direct 45 mg/dL (40-60); LDL Cholesterol Calculated 97 mg/dL (<130); Triglycerides 50 mg/dL (0-150)
== END 2022-12-05 07:26 | disposition home or self-care (01) ==
LOC: CHSLAB 07:27
PROVIDERS: PCP Internal Medicine; Visit Provider Internal Medicine Cardiovascular Disease
DX: E78.5 Hyperlipidemia, unspecified (principal)
CPT/HCPCS: 36415; 80061

== ENCOUNTER 2023-02-20 13:28 | Outpatient (CLI) | payer OTHER, SELFPAY ==
[2023-02-20 13:50] LABS: Basophils Absolute Auto 0.04 K/mm3 (0.00-0.10); Basophils Percent Auto 0.6 % (0.0-1.0); Eosinophils Absolute Auto 0.12 K/mm3 (0.02-0.50); Eosinophils Percent Auto 1.7 % (1.0-6.0); Hematocrit 44.7 % (40.0-54.0); Hemoglobin 14.8 g/dL (14.0-18.0); Immature Granulocyte Absolute 0.03 K/mm3 (0.00-0.00); Immature Granulocyte Percent A 0.4 % (0.0-0.0); Lymphocytes Absolute Auto 2.28 K/mm3 (1.10-4.50); Lymphocytes Percent Auto 31.8 % (18.0-42.0); Mean Corpuscular HGB Conc 33.1 g/dL (32.0-36.0); Mean Corpuscular Hemoglobin 31.3 pg (27.0-31.0); Mean Corpuscular Volume 94.5 fL (78.0-102.0); Mean Platelet Volume 9.2 fl (8.7-11.0); Monocytes Absolute Auto 0.52 K/mm3 (0.10-0.90); Monocytes Percent Auto 7.2 % (2.0-11.0); Neutrophils Absolute Auto 4.2 K/mm3 (1.7-7.2); Neutrophils Percent Auto 58.3 % (50.0-70.0); Platelet Count Result 248 K/mm3 (150-420); Red Blood Count 4.73 M/mm3 (4.70-6.10); Red Cell Distribution Width 12.8 % (11.6-14.4); White Blood Count 7.2 K/mm3 (4.8-10.8)
[2023-02-20 14:28] LABS: Alanine Aminotransferase 41 U/L (16-63); Albumin Level 3.9 g/dL (3.4-5.0); Alkaline Phosphatase 46 U/L (46-116); Anion Gap 7 mmol/L (8-16); Aspartate Amino Transferase 15 U/L (15-37); Bilirubin,Total 1.1 mg/dL (0.00-1.00); Blood Urea Nitrogen 23 mg/dL (7-18); Calcium 8.6 mg/dL (8.5-10.1); Carbon Dioxide 27 mmol/L (21-32); Chloride 104 mmol/L (98-108); Creatine Kinase 113 U/L (39-308); Estimated Glomerular Filt Rate > 60; Glucose 85 mg/dL (70-99); Osmolality Calculated 288 mOsm/kg (285-295); Potassium 4.6 mmol/L (3.5-5.1); Sodium 138 mmol/L (136-145); Total Protein 6.8 g/dL (6.4-8.2)
[2023-02-20 14:32] LABS: CRP < 0.5 mg/dL (0.0-0.9)
[2023-02-20 14:38] LABS: Rheumatoid Factor Screen Negative (Negative)
[2023-02-20 14:50] LABS: Erythrocyte Sedimentation Rate 7 mm/hr (0-20)
[2023-02-23 06:41] LABS: Lyme Disease Ab (IgM), Blot Negative (Negative); Lyme Disease Ab(IgG), Blot Negative (Negative)
[2023-02-25 22:19] LABS: Cyclic Citrullinated Peptide <16 Units (<20)
== END 2023-02-20 13:29 | disposition home or self-care (01) ==
LOC: CHSLAB 13:29
PROVIDERS: PCP Internal Medicine; Visit Provider Internal Medicine
DX: M18.0 Bilateral primary osteoarthritis of first carpometacarpal joints (principal)
CPT/HCPCS: 36415; 80053; 82550; 85025; 85652; 86038; 86140; 86200; 86430; 86617

== ENCOUNTER 2023-03-25 15:15 | Outpatient (CLI) | payer OTHER, SELFPAY ==
[2023-03-25 15:39] LABS: Basophils Absolute Auto 0.05 K/mm3 (0.00-0.10); Basophils Percent Auto 0.7 % (0.0-1.0); Eosinophils Absolute Auto 0.16 K/mm3 (0.02-0.50); Eosinophils Percent Auto 2.2 % (1.0-6.0); Hematocrit 42.1 % (40.0-54.0); Hemoglobin 13.9 g/dL (14.0-18.0); Immature Granulocyte Absolute 0.02 K/mm3 (0.00-0.00); Immature Granulocyte Percent A 0.3 % (0.0-0.0); Lymphocytes Absolute Auto 2.58 K/mm3 (1.10-4.50); Mean Corpuscular Hemoglobin 30.5 pg (27.0-31.0); Mean Corpuscular Volume 92.5 fL (78.0-102.0); Mean Platelet Volume 9.2 fl (8.7-11.0); Monocytes Absolute Auto 0.52 K/mm3 (0.10-0.90); Neutrophils Absolute Auto 4.1 K/mm3 (1.7-7.2); Neutrophils Percent Auto 54.8 % (50.0-70.0); Platelet Count Result 238 K/mm3 (150-420); Red Blood Count 4.55 M/mm3 (4.70-6.10); Red Cell Distribution Width 13.1 % (11.6-14.4); White Blood Count 7.4 K/mm3 (4.8-10.8)
[2023-03-25 16:12] LABS: Alanine Aminotransferase 38 U/L (16-63); Albumin Level 3.5 g/dL (3.4-5.0); Alkaline Phosphatase 45 U/L (46-116); Anion Gap 11 mmol/L (8-16); Aspartate Amino Transferase 19 U/L (15-37); Bilirubin,Total 0.9 mg/dL (0.00-1.00); Blood Urea Nitrogen 25 mg/dL (7-18); Calcium 8.7 mg/dL (8.5-10.1); Carbon Dioxide 25 mmol/L (21-32); Chloride 105 mmol/L (98-108); Estimated Glomerular Filt Rate > 60; Glucose 86 mg/dL (70-99); Osmolality Calculated 295 mOsm/kg (285-295); Potassium 4.8 mmol/L (3.5-5.1); Sodium 141 mmol/L (136-145); Total Protein 6.7 g/dL (6.4-8.2)
[2023-03-25 16:19] LABS: Rheumatoid Factor Screen Negative (Negative)
[2023-03-25 16:47] LABS: Erythrocyte Sedimentation Rate 11 mm/hr (0-20)
[2023-03-26 07:44] LABS: Uric Acid 5.6 mg/dL (3.5-7.2)
[2023-03-26 07:53] LABS: CRP < 0.5 mg/dL (0.0-0.9)
[2023-03-27 14:46] LABS: Lyme Disease Ab (IgM), Blot Negative (Negative); Lyme Disease Ab(IgG), Blot Negative (Negative)
[2023-03-28 21:24] LABS: Cyclic Citrullinated Peptide <16 Units (<20)
== END 2023-03-25 15:16 | disposition home or self-care (01) ==
PROVIDERS: PCP Internal Medicine; Visit Provider Internal Medicine
DX: M13.0 Polyarthritis, unspecified (principal)
CPT/HCPCS: 36415; 80053; 84550; 85025; 85652; 86038; 86140; 86200; 86430; 86617

== ENCOUNTER 2023-05-05 07:16 | Outpatient (CLI) | payer OTHER, SELFPAY ==
[2023-05-05 07:28] LABS: Basophils Absolute Auto 0.04 K/mm3 (0.00-0.10); Basophils Percent Auto 0.5 % (0.0-1.0); Eosinophils Absolute Auto 0.22 K/mm3 (0.02-0.50); Eosinophils Percent Auto 2.9 % (1.0-6.0); Hematocrit 40.1 % (40.0-54.0); Hemoglobin 13.3 g/dL (14.0-18.0); Immature Granulocyte Absolute 0.02 K/mm3 (0.00-0.00); Immature Granulocyte Percent A 0.3 % (0.0-0.0); Lymphocytes Absolute Auto 2.55 K/mm3 (1.10-4.50); Lymphocytes Percent Auto 33.6 % (18.0-42.0); Mean Corpuscular HGB Conc 33.2 g/dL (32.0-36.0); Mean Corpuscular Hemoglobin 30.7 pg (27.0-31.0); Mean Corpuscular Volume 92.6 fL (78.0-102.0); Monocytes Absolute Auto 0.58 K/mm3 (0.10-0.90); Monocytes Percent Auto 7.7 % (2.0-11.0); Neutrophils Absolute Auto 4.2 K/mm3 (1.7-7.2); Platelet Count Result 252 K/mm3 (150-420); Red Blood Count 4.33 M/mm3 (4.70-6.10); Red Cell Distribution Width 13.1 % (11.6-14.4); White Blood Count 7.6 K/mm3 (4.8-10.8)
[2023-05-05 07:29] LABS: Appearance Urine Clear (Clear); Bilirubin Urine Negative (Negative); Blood Urine Negative (Negative); Color Urine Yellow (Yellow); Glucose Urine UA Negative (Negative); Ketones Urine Negative (Negative); Leukocyte Esterase Ur Negative (Negative); Nitrate Urine Negative (Negative); Protein Urine Negative (Negative); Specific Grav Ur 1.025 (1.010-1.020); Urobilinogen Urine 0.2 mg/dL (0.2-1.0)
[2023-05-05 07:39] LABS: Hemoglobin A1C 5.9 % (<5.7)
[2023-05-05 07:42] LABS: Add Urine Microscopic? NO
[2023-05-05 08:38] LABS: Alanine Aminotransferase 44 U/L (16-63); Albumin Level 3.5 g/dL (3.4-5.0); Alkaline Phosphatase 42 U/L (46-116); Anion Gap 5 mmol/L (8-16); Aspartate Amino Transferase 17 U/L (15-37); Bilirubin,Total 0.6 mg/dL (0.00-1.00); Blood Urea Nitrogen 28 mg/dL (7-18); Calcium 8.6 mg/dL (8.5-10.1); Carbon Dioxide 26 mmol/L (21-32); Chloride 104 mmol/L (98-108); Cholesterol 149 mg/dL (0-200); Estimated Glomerular Filt Rate > 60; Ferritin 373 ng/mL (26-388); Free T4 Free Thyroxine 0.92 ng/dL (0.76-1.46); Glucose 99 mg/dL (70-99); HDL Direct 40 mg/dL (40-60); Iron 60 ug/dL (65-175); LDL Cholesterol Calculated 96 mg/dL (<130); Osmolality Calculated 285 mOsm/kg (285-295); Potassium 4.5 mmol/L (3.5-5.1); Prostate Specific Antigen 8.2 ng/mL (< OR = 4.0); Sodium 135 mmol/L (136-145); Thyroid Stimulating Hormone 2.62 uIU/mL (0.36-3.74); Total Protein 6.4 g/dL (6.4-8.2); Triglycerides 64 mg/dL (0-150); Vitamin B12 623 pg/mL (193-986)
== END 2023-05-05 07:17 | disposition home or self-care (01) ==
LOC: CHSLAB 07:17
PROVIDERS: PCP Internal Medicine; Visit Provider Internal Medicine
DX: I49.3 Ventricular premature depolarization (principal); I10 Essential (primary) hypertension; E78.2 Mixed hyperlipidemia; D64.9 Anemia, unspecified; R73.01 Impaired fasting glucose; R97.20 Elevated prostate specific antigen [PSA]
CPT/HCPCS: 36415; 80053; 80061; 81003; 82607; 82728; 83036; 83540; 84153; 84439; 84443; 85025

== ENCOUNTER 2023-05-26 08:07 | Outpatient (RCR) | payer OTHER, SELFPAY ==
--- NOTE | 2023-05-26 08:52 | OPREHPOC ---
Outpatient Therapy Plan of Care This is a Multidisciplinary Plan of Care that may contain components documented by all disciplines (PT, OT, and ST.) PT Problem 1 PT Problem #1 Knowledge Deficit PT Goal 1 Goal The patient will be independent in a home exercise program. Target Visit 4 PT Problem 2 PT Problem #2 Pain PT Goal 1 Goal The patient will report no greater than 4/10 right shoulder pain with daily activities. The patient will report no greater than 2/10 left shoulder pain with daily activities. Target Visit 10 PT Problem 3 PT Problem #3 Impaired Functional Mobil PT Goal 1 Goal The patient will demonstrate 20% or less self perceived disability per the Quick DASH. The patient will be able to sleep without interruption from shoulder pain. Target Visit 10 PT Problem 4 PT Problem #4 Impaired Strength PT Goal 1 Goal The patient will demonstrate 4/5 strength in bilateral shoulder flexion and abduction to improve lifting ability. Target Visit 10 PT Problem 5 PT Problem #5 Impaired Range of Motion PT Goal 1 Goal The patient will demonstrate bilateral shoulder flexion to 150 degrees to improve overhead reaching ability. The patient will demonstrate functional IR on the right to T9 to improve ability to wash his back. Target Visit 10
--- NOTE | 2023-05-26 08:52 | PTOPEVAL1 ---
Assessment and note entered by Alissa Sweeney, PT Evaluation Information Assessment Status Evaluation Diagnosis Bilateral Shoulder Pain Onset 05/19/23 Subjective Information Pete Knight reports he has been having shoulder pain on both sides that started in January 2023. He has had an onset of different body pain every winter and he has been diagnosed with a form of rheumatoid arthritis in the past and was treated with prednisone which helped. He has not been to see the software design engineer in several years and is trying to get in to see a new one. He has pain in the right more than the left shoulder just below the joint near the bicep. He is right hand dominant. He notes constant pain that worsens with certain movements. He also notes popping when he moves it when laying down. He uses Meloxicam for pain control. He notes pain is worse in the evening and when he lays on his side. He is retired and likes to kahn and fish. He notes he can still be active but has increased pain after he is active. Reported Pain Level Pain Score 5,0: Self Report Assessment PT Clinical Summary Pete Knight presents with bilateral shoulder pain and has been diagnosed with rheumatoid arthritis in the past. He has difficulty with laying down, reaching behind his back, and increased pain after activity. He objectively demonstrates impaired upper trunk posture, decreased right > left shoulder AROM, decreased bilateral shoulder strength, and positive special tests for rotator cuff pathology bilaterally and shoulder impingement on the right. He will benefit from skilled PT to address these limitations. Plan of Care Interventions Electrical Stimulation,Hot Pack/Cold Pack,Patient/ Caregiver Educati,Therapeutic Activities, Therapeutic Exercise PT Services Indicated Yes Treatment Frequency and 2 times a week for 10 visits Duration These treatments will address the objective and functional deficits as defined above. The patient will be advanced safely and appropriately in order for the patient to progress towards his/her prior level of function. Additional exercises will be introduced and as well as a comprehensive home exercise program upon discharge, if needed, ?to ensure carryover of functional gains achieved in the clinic. This treatment plan has been reviewed and agreement upon by the patient.
--- NOTE | 2023-06-18 14:53 | OPREHPOC ---
Outpatient Therapy Plan of Care This is a Multidisciplinary Plan of Care that may contain components documented by all disciplines (PT, OT, and ST.) PT Problem 1 PT Problem #1 Knowledge Deficit PT Goal 1 Goal The patient will be independent in a home exercise program. Target Visit 4 Progress Met PT Problem 2 PT Problem #2 Pain PT Goal 1 Goal The patient will report no greater than 4/10 right shoulder pain with daily activities. -not met The patient will report no greater than 2/10 left shoulder pain with daily activities. -met Target Visit 10 Progress Partially Met PT Problem 3 PT Problem #3 Impaired Functional Mobil PT Goal 1 Goal The patient will demonstrate 20% or less self perceived disability per the Quick DASH. -not met The patient will be able to sleep without interruption from shoulder pain. -met Target Visit 10 Progress Partially Met PT Problem 4 PT Problem #4 Impaired Strength PT Goal 1 Goal The patient will demonstrate 4/5 strength in bilateral shoulder flexion and abduction to improve lifting ability. Target Visit 10 Progress Met PT Problem 5 PT Problem #5 Impaired Range of Motion PT Goal 1 Goal The patient will demonstrate bilateral shoulder flexion to 150 degrees to improve overhead reaching ability. -not met, progress towards The patient will demonstrate functional IR on the right to T9 to improve ability to wash his back. -met Target Visit 10 Progress Partially Met
--- NOTE | 2023-06-18 14:53 | PTOPDC ---
Assessment and note entered by Alissa Sweeney, PT Evaluation Information Assessment Status Discharge Diagnosis B shoulder pain Onset 05/19/23 Subjective Information Pete Knight reports that his shoulder pain has not really changed overall. He is wondering if it is because of the rheumatoid arthritis he was previously diagnosed with. He is supposed to see a electronic scale assembler and tester on July 09, 2023. He does note more mobility in his shoulder and the ability to reach overhead and behind his back. He would like to continue skilled PT independently with his exercises until he sees the electronic scale assembler and tester and gets a plan. Reported Pain Level Pain Score 2,5: Self Report Assessment PT Clinical Summary Pete Knight has completed 8 skilled PT visits for bilateral shoulder pain. He is reporting improved mobility and ability to reach overhead and behind his back however, his pain is unchanged and he still struggles laying on his side or stomach. He is scheduled to see a electronic scale assembler and tester on 07/09/23 and would like to continue PT independently with his home exercises. He objectively demonstrates improved bilateral shoulder AROM, improved bilateral shoulder strength, and less positive special tests. He does still have decreased left shoulder abduction AROM , decreased bilateral shoulder strength, and positive special tests consistent with subscapularis tendonitis. He will be discharged to an independent [facility] per his request. Plan of Care PT Services Indicated No
== END 2023-06-18 15:07 | disposition home or self-care (01) ==
LOC: CHSPT 08:07
PROVIDERS: Visit Provider Internal Medicine
DX: M25.511 Pain in right shoulder (principal); M25.512 Pain in left shoulder
CPT/HCPCS: 97014; 97110; 97150; 97161; G0283

== ENCOUNTER 2023-05-29 10:07 | Outpatient (CLI) | payer OTHER, SELFPAY ==
[2023-05-29 10:20] LABS: Occult Blood Negative (Negative)
[2023-05-29 10:20] LABS: Occult Blood Negative (Negative)
[2023-05-29 10:20] LABS: Occult Blood Negative (Negative)
== END 2023-05-29 10:08 | disposition home or self-care (01) ==
LOC: CHSLAB 10:11
PROVIDERS: PCP Internal Medicine; Visit Provider Internal Medicine
DX: D64.9 Anemia, unspecified (principal); D50.9 Iron deficiency anemia, unspecified
CPT/HCPCS: 82272

== ENCOUNTER 2023-06-29 09:01 | Outpatient (CLI) | payer OTHER, SELFPAY ==
[2023-06-29 09:22] LABS: Basophils Absolute Auto 0.04 K/mm3 (0.00-0.10); Basophils Percent Auto 0.5 % (0.0-1.0); Eosinophils Percent Auto 3.7 % (1.0-6.0); Hematocrit 42.9 % (40.0-54.0); Immature Granulocyte Absolute 0.02 K/mm3 (0.00-0.00); Immature Granulocyte Percent A 0.2 % (0.0-0.0); Immature Reticulocyte Fraction 10.3 % (2.0-16.52); Lymphocytes Absolute Auto 2.25 K/mm3 (1.10-4.50); Lymphocytes Percent Auto 27.7 % (18.0-42.0); Mean Corpuscular HGB Conc 32.6 g/dL (32-36); Mean Corpuscular Hemoglobin 30.8 pg (27.0-31.0); Mean Corpuscular Volume 94.3 fL (78.0-102.0); Mean Platelet Volume 9.2 fl (8.7-11.0); Monocytes Absolute Auto 0.44 K/mm3 (0.10-0.90); Monocytes Percent Auto 5.4 % (2.0-11.0); Neutrophils Absolute Auto 5.06 K/mm3 (1.70-7.20); Neutrophils Percent Auto 62.5 % (50.0-70.0); Platelet Count Result 227 K/mm3 (150-420); Red Blood Count 4.55 M/mm3 (4.70-6.10); Red Cell Distribution Width 13.3 % (11.6-14.4); Reticulocyte Hemoglobin Conten 35.6 pg (28.0-35.0); Reticulocyte Percent 1.48 % (0.50-1.50); Reticulocytes Absolute 0.07 M/mm3 (0.02-0.10); White Blood Count 8.1 K/mm3 (4.8-10.8)
[2023-06-29 10:11] LABS: Ferritin 282 ng/mL (26-388); Iron 61 ug/dL (65-175)
== END 2023-06-29 09:02 | disposition home or self-care (01) ==
LOC: CHSLAB 09:02
PROVIDERS: PCP Internal Medicine; Visit Provider Internal Medicine
DX: D50.9 Iron deficiency anemia, unspecified (principal)
CPT/HCPCS: 36415; 82728; 83540; 85025; 85046

== ENCOUNTER 2023-10-02 10:07 | Outpatient (CLI) | payer MEDICARE, SELFPAY ==
[2023-10-02 10:32] LABS: Hemoglobin 13.9 g/dL (12.4-15.3); Mean Corpuscular HGB Conc 33.9 g/dL (32-36); Mean Corpuscular Hemoglobin 31.2 pg (27.0-31.0); Mean Corpuscular Volume 91.9 fL (78.0-102.0); Mean Platelet Volume 9.2 fl (8.7-11.0); Platelet Count Result 224 K/mm3 (150-420); Red Blood Count 4.46 M/mm3 (4.70-6.10); Red Cell Distribution Width 13.2 % (11.6-14.4)
[2023-10-02 11:33] LABS: Ferritin 433 ng/mL (26-388); Iron 109 ug/dL (65-175)
== END 2023-10-02 10:08 | disposition home or self-care (01) ==
PROVIDERS: PCP Internal Medicine; Visit Provider Internal Medicine
DX: D50.9 Iron deficiency anemia, unspecified (principal)
CPT/HCPCS: 36415; 82728; 83540; 85027

== ENCOUNTER 2023-10-06 15:01 | Outpatient (CLI) | payer MEDICARE, SELFPAY ==
[2023-10-06 15:26] LABS: Hemoglobin 13.2 g/dL (12.4-15.3); Mean Corpuscular HGB Conc 33.8 g/dL (32-36); Mean Corpuscular Hemoglobin 31.8 pg (27.0-31.0); Mean Platelet Volume 9.7 fl (8.7-11.0); Platelet Count Result 219 K/mm3 (150-420); Red Blood Count 4.15 M/mm3 (4.70-6.10); White Blood Count 8.3 K/mm3 (4.8-10.8)
[2023-10-06 16:21] LABS: Alanine Aminotransferase 38 U/L (16-63); Albumin Level 3.7 g/dL (3.4-5.0); Alkaline Phosphatase 53 U/L (46-116); Anion Gap 7 mmol/L (4-12); Aspartate Amino Transferase 17 U/L (15-37); Bilirubin,Total 0.8 mg/dL (0.00-1.00); Blood Urea Nitrogen 19 mg/dL (7-18); Calcium 9.2 mg/dL (8.5-10.1); Carbon Dioxide 31 mmol/L (21-32); Chloride 105 mmol/L (98-108); Estimated Glomerular Filt Rate > 60; Free T3 2.85 pg/mL (2.18-3.98); Free T4 Free Thyroxine 0.82 ng/dL (0.76-1.46); Glucose 105 mg/dL (70-99); Magnesium 1.7 mg/dL (1.8-2.4); Osmolality Calculated 298 mOsm/kg (285-295); Sodium 143 mmol/L (136-145); Thyroid Stimulating Hormone 1.52 uIU/mL (0.36-3.74); Total Protein 6.6 g/dL (6.4-8.2)
== END 2023-10-06 15:02 | disposition home or self-care (01) ==
LOC: CHSLAB 15:04
PROVIDERS: PCP Internal Medicine; Visit Provider Internal Medicine
DX: F41.1 Generalized anxiety disorder (principal); I49.3 Ventricular premature depolarization
CPT/HCPCS: 36415; 80053; 83735; 84439; 84443; 84481; 85027

== ENCOUNTER 2023-11-07 07:18 | Outpatient (CLI) | payer MEDICARE, SELFPAY ==
[2023-11-07 07:58] LABS: Basophils Absolute Auto 0.05 K/mm3 (0.00-0.10); Basophils Percent Auto 0.7 % (0.0-1.0); Eosinophils Absolute Auto 0.21 K/mm3 (0.02-0.50); Eosinophils Percent Auto 3.1 % (1.0-6.0); Hematocrit 40.2 % (37.0-46.0); Hemoglobin 13.6 g/dL (12.4-15.3); Immature Granulocyte Absolute 0.02 K/mm3 (0.00-0.00); Immature Granulocyte Percent A 0.3 % (0.0-0.0); Lymphocytes Percent Auto 36.5 % (18.0-42.0); Mean Corpuscular HGB Conc 33.8 g/dL (32-36); Mean Corpuscular Hemoglobin 31.4 pg (27.0-31.0); Mean Corpuscular Volume 92.8 fL (78.0-102.0); Mean Platelet Volume 9.4 fl (8.7-11.0); Monocytes Absolute Auto 0.66 K/mm3 (0.10-0.90); Monocytes Percent Auto 9.6 % (2.0-11.0); Neutrophils Percent Auto 49.8 % (50.0-70.0); Platelet Count Result 194 K/mm3 (150-420); Red Blood Count 4.33 M/mm3 (4.70-6.10); Red Cell Distribution Width 12.7 % (11.6-14.4); White Blood Count 6.8 K/mm3 (4.8-10.8)
[2023-11-07 07:59] LABS: Add Urine Microscopic? NO; Appearance Urine Clear (Clear); Bilirubin Urine Negative (Negative); Blood Urine Negative (Negative); Color Urine Light Yellow (Yellow); Glucose Urine UA Negative (Negative); Ketones Urine Negative (Negative); Leukocyte Esterase Ur Negative LEU/UL (Negative); Nitrate Urine Negative (Negative); Protein Urine Negative (Negative); Specific Grav Ur 1.025 (1.010-1.020); Urobilinogen Urine 0.2 mg/dL (0.2-1.0)
[2023-11-07 08:22] LABS: Hemoglobin A1C 5.7 % (<5.7)
[2023-11-07 09:00] LABS: Alanine Aminotransferase 39 U/L (16-63); Albumin Level 3.5 g/dL (3.4-5.0); Alkaline Phosphatase 51 U/L (46-116); Anion Gap 6 mmol/L (4-12); Aspartate Amino Transferase 19 U/L (15-37); Bilirubin,Total 0.9 mg/dL (0.00-1.00); Blood Urea Nitrogen 24 mg/dL (7-18); Calcium 8.9 mg/dL (8.5-10.1); Carbon Dioxide 30 mmol/L (21-32); Chloride 107 mmol/L (98-108); Cholesterol 144 mg/dL (0-200); Creatine Kinase 146 U/L (39-308); Estimated Glomerular Filt Rate > 60; Ferritin 427 ng/mL (26-388); Glucose 100 mg/dL (70-99); HDL Direct 36 mg/dL (40-60); Iron 88 ug/dL (65-175); LDL Cholesterol Calculated 84 mg/dL (<130); Osmolality Calculated 300 mOsm/kg (285-295); Potassium 4.5 mmol/L (3.5-5.1); Prostate Specific Antigen 5.5 ng/mL (< OR = 4.0); Sodium 143 mmol/L (136-145); Total Protein 6.4 g/dL (6.4-8.2); Triglycerides 119 mg/dL (0-150)
== END 2023-11-07 07:19 | disposition home or self-care (01) ==
LOC: CHSLAB 07:21
PROVIDERS: PCP Internal Medicine; Visit Provider Internal Medicine
DX: I10 Essential (primary) hypertension (principal); R73.01 Impaired fasting glucose; R97.20 Elevated prostate specific antigen [PSA]; E78.2 Mixed hyperlipidemia; D50.9 Iron deficiency anemia, unspecified; E61.2 Magnesium deficiency
CPT/HCPCS: 36415; 80053; 80061; 81003; 82550; 82728; 83036; 83540; 84153; 85025

== ENCOUNTER 2024-05-17 09:24 | Outpatient (CLI) | payer MEDICARE, SELFPAY ==
[2024-05-17 09:42] LABS: Hematocrit 40.5 % (37.0-46.0); Hemoglobin 13.4 g/dL (12.4-15.3); Mean Corpuscular HGB Conc 33.1 g/dL (32-36); Mean Corpuscular Hemoglobin 30.7 pg (27.0-31.0); Mean Corpuscular Volume 92.9 fL (78.0-102.0); Mean Platelet Volume 9.4 fl (8.7-11.0); Platelet Count Result 227 K/mm3 (150-420); Red Blood Count 4.36 M/mm3 (4.70-6.10); Red Cell Distribution Width 13.2 % (11.6-14.4); White Blood Count 7.6 K/mm3 (4.8-10.8)
[2024-05-17 09:44] LABS: Add Urine Microscopic? NO; Appearance Urine Clear (Clear); Bilirubin Urine Negative (Negative); Blood Urine Negative (Negative); Color Urine Light Yellow (Yellow); Glucose Urine UA Negative (Negative); Ketones Urine Negative (Negative); Leukocyte Esterase Ur Negative (Negative); Nitrate Urine Negative (Negative); Protein Urine Negative (Negative); Specific Grav Ur 1.025 (1.010-1.020); Urobilinogen Urine 0.2 mg/dL (0.2-1.0)
[2024-05-17 09:57] LABS: Hemoglobin A1C 6.1 % (<5.7)
--- OUTSIDE RECORDS SUMMARY | 2024-05-17 10:28 | XMS_ITS | Clinical Summary ---
Author Organization [facility] Address [facility] [place] [address] Care Team Providers Care Maintenance Mgr Name Role Phone Unavailable Primary Care Provider Unavailabl e Social History Tobacco Use Types Packs/Day Years Used Date Smoking Tobacco: Never Assessed Sex and Gender Information Value Date Recorded Sex Assigned at Not on file Legal Sex Male 5:20 PM CDT Gender Identity Not on file Sexual Orientation Not on file Plan of Treatment Health Maintenance Due Date Last Done Comments Colorectal Cancer Screening Colonoscopy (10 Years) 1960 Hepatitis C 1976 DTaP, Tdap and Td Vaccines ( 1 - Tdap) 1977 Zoster Vaccines (1 of 2) 2008 Pneumococcal Vaccine: 65+ Ye ars (1 of 1 - PCV) 09/09/2023 COVID-19 Vaccine (1 - 2023-2 5 season) 2023 Influenza Adult (#1) 2023 RSV Immunization or 60+ Years (1 - 1-dose 75+ series) 2033 Meningococcal B Vaccine Aged Out No l onger eligible based on patient's age to complete this topic Meningococcal Vaccine Aged Out No tonia sarmad eligible based on patient's age to complete this topic Pneumococcal Vaccine: Pediat rics (0 to 5 Years) and At-Risk Patients (6 to 64 Years) Aged Out No longer eligible b ased on patient's age to complete this topic RSV Immunizations Under 20 Months Aged Out No longer eligible based on patient's age to complete this topic
--- OUTSIDE RECORDS SUMMARY | 2024-05-17 10:28 | XMS_ITS | CONTINUITY OF CARE DOCUMENT ---
Author Name trae larkin Address Unknown Organization [facility] Address [address] [place] [address] Phone [phone] Care Team Providers Care Perch Machine Inspector Name Role Phone AMBER NETTLES, ISAÍAS Unavailable INSURANCE PROVIDERS Payer name Policy type / Coverage type Real red republican ID [employer] PPO Other [id number]
[2024-05-17 10:37] LABS: Alanine Aminotransferase 36 U/L (16-63); Albumin Level 3.7 g/dL (3.4-5.0); Alkaline Phosphatase 60 U/L (46-116); Anion Gap 10 mmol/L (4-12); Aspartate Amino Transferase 16 U/L (15-37); Bilirubin,Total 0.8 mg/dL (0.00-1.00); Blood Urea Nitrogen 31 mg/dL (7-18); Calcium 9.1 mg/dL (8.5-10.1); Carbon Dioxide 25 mmol/L (21-32); Chloride 105 mmol/L (98-108); Cholesterol 153 mg/dL (0-200); Creatine Kinase 152 U/L (39-308); Estimated Glomerular Filt Rate 60; Free T4 Free Thyroxine 0.84 ng/dL (0.76-1.46); Glucose 102 mg/dL (70-99); HDL Direct 46 mg/dL (40-60); LDL Cholesterol Calculated 93 mg/dL (<130); Osmolality Calculated 296 mOsm/kg (285-295); Prostate Specific Antigen 5.2 ng/mL (< OR = 4.0); Sodium 140 mmol/L (136-145); Thyroid Stimulating Hormone 3.34 uIU/mL (0.36-3.74); Total Protein 6.8 g/dL (6.4-8.2); Triglycerides 72 mg/dL (0-150)
[2024-05-17 10:40] LABS: Free T3 3.07 pg/mL (2.18-3.98)
== END 2024-05-17 09:25 | disposition home or self-care (01) ==
LOC: CHSLAB 09:26
PROVIDERS: PCP Internal Medicine; Visit Provider Internal Medicine
DX: R97.20 Elevated prostate specific antigen [PSA] (principal); I10 Essential (primary) hypertension; E78.2 Mixed hyperlipidemia; J32.4 Chronic pansinusitis; R73.01 Impaired fasting glucose; I47.29 Other ventricular tachycardia
CPT/HCPCS: 36415; 80053; 80061; 81003; 82550; 83036; 83735; 84153; 84439; 84443; 84481; 85027

== ENCOUNTER 2024-05-25 11:48 | Outpatient (CLI) | payer MEDICARE, SELFPAY ==
[2024-05-25 12:52] LABS: CRP < 0.5 mg/dL (0.0-0.9)
[2024-05-25 13:03] LABS: Erythrocyte Sedimentation Rate 21 mm/hr (0-20)
--- OUTSIDE RECORDS SUMMARY | 2024-05-25 13:17 | XMS_ITS | CONTINUITY OF CARE DOCUMENT ---
Author Name trae larkin Address Unknown Organization [facility] Address [address] [place] [address] Phone [phone] Care Team Providers Care Apparel Designer Name Role Phone AMBER NETTLES, ISAÍAS Unavailable [phone] INSURANCE PROVIDERS Payer name Policy type / Coverage type Real red constitution party ID [id number] PPO Other [id number]
--- OUTSIDE RECORDS SUMMARY | 2024-05-25 13:17 | XMS_ITS | Clinical Summary ---
Author Organization [facility] Address [facility] [place] [address] Care Team Providers Care Residential Installer Name Role Phone Unavailable Primary Care Provider [...] of 1 - PCV) 09/09/2023 COVID-19 Vaccine ( - 2023-2 5 season) 2023 Influenza Adult [...]
[2024-05-25 13:18] LABS: Rheumatoid Factor Screen Negative (Negative)
[2024-05-27 16:03] LABS: Cyclic Citrullinated Peptide <16 UNITS
== END 2024-05-25 11:49 | disposition home or self-care (01) ==
PROVIDERS: PCP Internal Medicine; Visit Provider Internal Medicine
DX: M25.50 Pain in unspecified joint (principal)
CPT/HCPCS: 36415; 85652; 86140; 86200; 86430

== ENCOUNTER 2024-08-25 11:15 | Outpatient (CLI) | payer MEDICARE, SELFPAY ==
--- OUTSIDE RECORDS SUMMARY | 2024-08-25 11:19 | XMS_ITS | Clinical Summary ---
Author Organization [facility] Address [facility] [place] [address] Care Team Providers Care Pharm Spec Name Role Phone Unavailable Primary Care Provider [...] Td Vaccines ( 1 - Tdap) 1977 Pneumococcal Vaccine: 50+ Ye ars (1 of 1 - PCV) 2008 Zoster Vaccines (1 of 2) 2008 COVID-19 Vaccine ( - 2023-2 5 season) 2023 RSV Immunization or 60+ Years (1 [...]
[2024-08-25 11:33] LABS: Hematocrit 40.1 % (37.0-46.0); Hemoglobin 13.1 g/dL (12.4-15.3); Mean Corpuscular HGB Conc 32.7 g/dL (32-36); Mean Corpuscular Hemoglobin 31.3 pg (27.0-31.0); Mean Corpuscular Volume 95.9 fL (78.0-102.0); Platelet Count Result 232 K/mm3 (150-420); Red Blood Count 4.18 M/mm3 (4.70-6.10); White Blood Count 6.5 K/mm3 (4.8-10.8)
[2024-08-25 12:11] LABS: Alanine Aminotransferase 43 U/L (6-50); Albumin Level 3.9 g/dL (3.5-5.1); Alkaline Phosphatase 43 U/L (38-126); Anion Gap 7 mmol/L (4-12); Aspartate Amino Transferase 28 U/L (17-59); Bilirubin,Total 0.9 mg/dL (0.2-1.3); Blood Urea Nitrogen 30 mg/dL (9-20); CRP. < 0.5 mg/dL (<1.0); Calcium 9.0 mg/dL (8.4-10.2); Carbon Dioxide 22 mmol/L (22-30); Chloride 113 mmol/L (98-107); Estimated Glomerular Filt Rate 57; Glucose 113 mg/dL (65-110); Osmolality Calculated 301 mOsm/kg (285-295); Potassium 4.9 mmol/L (3.4-5.0); Sodium 142 mmol/L (137-145); Total Protein 6.4 g/dL (6.3-8.2)
[2024-08-26 11:09] LABS: Red Blood Cell Folate 633 ng/mL RBC (>280)
== END 2024-08-25 11:16 | disposition home or self-care (01) ==
LOC: CHSLAB 11:17
PROVIDERS: PCP Internal Medicine; Visit Provider Internal Medicine
DX: M25.50 Pain in unspecified joint (principal); R73.01 Impaired fasting glucose
CPT/HCPCS: 36415; 80053; 82747; 85027; 85652; 86140; 86200

== ENCOUNTER 2024-11-09 09:14 | Outpatient (CLI) | payer MEDICARE, SELFPAY ==
--- NOTE | ~2024-11-09 | XR_ITS ---
XR lumbar spine 2-3V Indication: lumbar radiculopathy Comparison: None Findings: The vertebral heights are intact. No fracture or subluxation. Minimal loss of disc height throughout Soft tissues unremarkable Impression: No acute abnormality. Reviewed, dictated and finalized at location A. Impression: No acute abnormality.
--- OUTSIDE RECORDS SUMMARY | 2024-11-09 10:01 | XMS_ITS | Clinical Summary ---
Author Organization [facility] Address [facility] [address] [place] [address] Care Team Providers Care Teacher Of Family And Consumer Science Name Role Phone Unavailable Primary Care Provider [...] Vaccines (1 of 2) 2008 COVID-19 Vaccine (1 - 2023-2 5 season) 2024 RSV Immunization or 60+ Years (1 - [...]
== END 2024-11-09 09:15 | disposition home or self-care (01) ==
LOC: CHSIMG 09:15
PROVIDERS: PCP Internal Medicine; Visit Provider Nurse Practitioner Family
DX: M54.16 Radiculopathy, lumbar region (principal)
CPT/HCPCS: 72100

== ENCOUNTER 2024-11-23 07:03 | Outpatient (CLI) | payer MEDICARE, SELFPAY ==
--- OUTSIDE RECORDS SUMMARY | 2024-11-23 07:09 | XMS_ITS | Clinical Summary ---
Author Organization [facility] Address [facility] [place] [address] Care Team Providers Care Dispensing And Measuring Optician Name Role Phone Unavailable Primary Care Provider [...]
[2024-11-23 07:22] LABS: Hematocrit 40.6 % (37.0-46.0); Hemoglobin 13.1 g/dL (12.4-15.3); Mean Corpuscular HGB Conc 32.3 g/dL (32-36); Mean Corpuscular Hemoglobin 32.3 pg (27.0-31.0); Mean Corpuscular Volume 100.0 fL (78.0-102.0); Platelet Count Result 223 K/mm3 (150-420); Red Blood Count 4.06 M/mm3 (4.70-6.10); White Blood Count 6.9 K/mm3 (4.8-10.8)
[2024-11-23 07:23] LABS: Add Urine Microscopic? NO; Appearance Urine Clear (Clear); Glucose Urine UA Negative (Negative); Leukocyte Esterase Ur Negative (Negative); Nitrate Urine Negative (Negative); Specific Grav Ur 1.025 (1.010-1.020)
[2024-11-23 07:36] LABS: Hemoglobin A1C 6.1 % (<5.7)
[2024-11-23 07:52] LABS: Alanine Aminotransferase 36 U/L (6-50); Albumin Level 4.1 g/dL (3.5-5.1); Alkaline Phosphatase 49 U/L (38-126); Anion Gap 7 mmol/L (4-12); Aspartate Amino Transferase 25 U/L (17-59); Bilirubin,Total 1.0 mg/dL (0.2-1.3); Blood Urea Nitrogen 25 mg/dL (9-20); CRP < 0.5 mg/dL (<1.0); Calcium 9.6 mg/dL (8.4-10.2); Carbon Dioxide 28 mmol/L (22-30); Chloride 107 mmol/L (98-107); Cholesterol 158 mg/dL (0-200); Creatine Kinase 143 U/L (55-170); Estimated Glomerular Filt Rate > 60; Glucose 104 mg/dL (65-110); HDL Direct 40 mg/dL; Osmolality Calculated 298 mOsm/kg (285-295); Potassium 4.7 mmol/L (3.4-5.0); Sodium 142 mmol/L (137-145); Total Protein 6.8 g/dL (6.3-8.2); Triglycerides 97 mg/dL (<150)
[2024-11-23 08:06] LABS: Free T4 Free Thyroxine 1.06 ng/dL (0.78-2.19)
[2024-11-23 08:20] LABS: Thyroid Stimulating Hormone 3.170 uIU/mL (0.465-4.680)
[2024-11-24 15:09] LABS: Folate, Hemolysate 448.0 ng/mL (Not Estab.); Folate, RBC 1069 ng/mL (>498); Hematocrit 41.9 % (37.5-51.0)
== END 2024-11-23 07:04 | disposition home or self-care (01) ==
PROVIDERS: PCP Internal Medicine; Visit Provider Internal Medicine
DX: R53.82 Chronic fatigue, unspecified (principal); R73.01 Impaired fasting glucose; I47.29 Other ventricular tachycardia; M13.0 Polyarthritis, unspecified; I49.3 Ventricular premature depolarization; I10 Essential (primary) hypertension
CPT/HCPCS: 36415; 80053; 80061; 81003; 82550; 82747; 83036; 84439; 84443; 85027; 85652; 86140

== ENCOUNTER 2024-11-23 08:00 | Outpatient (RCR) | payer MEDICARE, SELFPAY ==
--- NOTE | 2024-11-09 09:37 | OPREHPOC ---
Outpatient Therapy Plan of Care This is a Multidisciplinary Plan of Care that may contain components documented by all disciplines (PT, OT, and ST.) PT Problem 1 PT Problem #1 Knowledge Deficit PT Goal 1 Goal / Goal Update The patient will be independent in a home exercise program. Target Visit 4 PT Problem 2 PT Problem #2 Pain PT Goal 1 Goal / Goal Update The patient will report no greater than 2/10 L SIJ pain with sleeping, walking, and standing. Target Visit 10 PT Problem 3 PT Problem #3 Impaired Functional Mobility PT Goal 1 Goal / Goal Update The patient will demonstrate 25% or less self perceived disability per the Back Index questionnaire. The patient will demonstrate the ability to ambulate 1,200 feet during the 6 MWT with 2/10 or less L SIJ pain. Target Visit 10 PT Problem 4 PT Problem #4 Impaired Flexibility PT Goal 1 Goal / Goal Update The patient will improve left piriformis flexibility to mild from moderate tightness. The patient will improve left hamstring flexibility to -5 degrees or less tightness in the 90/90 position. Target Visit 10 PT Problem 5 PT Problem #5 Impaired Strength PT Goal 1 Goal / Goal Update The patient will improve lower abdominal strength to 4-/5 or greater. The patient will improve hip abduction strength to 4/5 or greater. Target Visit 10
--- NOTE | 2024-11-09 09:37 | PTOPEVAL1 ---
Assessment and note entered by Alissa Sweeney, PT Evaluation Information Assessment Status Evaluation ICD-10 Condition Codes (PT) Radiculopathy, lumbar region M54.16 Onset 11/08/24 Subjective Information Pete Knight reports he was wiping off a bench in a bent over position in June 2024 and felt a pop in his left lower back. He was taking diclofenac and it continued to hurt so he was referred to get an injection with pain management in [place]. The injection got canceled the night before so he is trying another pain management group and they want him to do PT and have a MRI before an injection. He has pain in the left SIJ that is worse when he lays down. He also notes pain with repetitive bending, prolonged standing, and prolonged walking as well. He is going on vacation soon and hoping to decrease pain prior to his vacation. He will be walking a lot on vacation. He is active with cycling regularly as well as exercises like bird dogs and bridges. He is not performing stretches. He occasionally uses OTC pain reliever. Reported Pain Level Pain Score 2: Self Report Assessment PT Clinical Summary Pete Knight presents with left SIJ pain that started in June 2024 when he felt a pop while bending over to clean a bench. He has difficulty with sleeping, prolonged standing, prolonged walking, and bending forward repetitively. He objectively demonstrates tenderness at the left SIJ, decreased lumbar AROM, decreased core strength and left hip strength, and decreased left > right quadriceps, left piriformis and hamstring flexbility. He will benefit from skilled PT to address these limitations. Plan of Care Interventions Electrical Stimulation,Hot Pack/Cold Pack,Manual Therapy,Mechanical Traction,Neuro Re-education, Patient/Caregiver Education,Therapeutic Activities ,Therapeutic Exercise,Self-Care/Home Management PT Services Indicated Yes Treatment Frequency and 3 times a week for 10 visits Duration These treatments will address the objective and functional deficits as defined above. The patient will be advanced safely and appropriately in order for the patient to progress towards his/her prior level of function. Additional exercises will be introduced and as well as a comprehensive home exercise program upon discharge, if needed, ?to ensure carryover of functional gains achieved in the clinic. This treatment plan has been reviewed and agreement upon by the patient.
--- NOTE | 2024-12-02 17:34 | PCPTNOTE ---
Patient called & cancelled scheduled appointment this date.
--- NOTE | 2024-12-06 16:03 | PCPTNOTE ---
pt attends 7 skilled PT visits for lumbar radiculopathy. pt calls today and would like to be discharged and is getting an injection.
== END 2024-11-23 20:00 | disposition home or self-care (01) ==
LOC: CHSPT 08:00
PROVIDERS: Visit Provider Nurse Practitioner Family
DX: M54.16 Radiculopathy, lumbar region (principal); M54.59 Other low back pain
CPT/HCPCS: 97014; 97110; 97112; 97140; 97150; 97161; G0283

== ENCOUNTER 2024-12-28 13:40 | Outpatient (CLI) | payer MEDICARE, SELFPAY ==
--- NOTE | ~2024-12-28 | XR_ITS ---
EXAMINATION: XR sacroiliac jt inj w imag LT DATE: 12/28/2024 14:43 INDICATION: Low back pain. Left sacroiliac joint pain. TECHNIQUE: A time-out was performed to verify the patient's name, date of , and procedure to be performed. The procedure including the risks, benefits, and alternatives was discussed with the patient. Risks discussed included bleeding and infection. The patient understood the risks and agreed to proceed. The skin overlying the left sacroiliac joint was prepped and draped in usual sterile fashion. Anesthetic was administered with 1% lidocaine subcutaneously. A 22 G needle was advanced under fluoroscopic guidance into the joint. Injection of 1 mL of Omnipaque 240 confirmed intra-articular position of the needle. Subsequently, injectate consisting of 5 mm a 3:1:1 mixture of 1% lidocaine: 40 mg/mL Kenalog and 4 mg/mL dexamethasone was instilled. The needle was removed and the entry site was cleaned and dressed. There were no immediate complications. Fluoroscopy exposure time was 0.9 minutes. The total number of images was 3. Total DAP was 3.7 Gycm^2. FINDINGS: Real-time fluoroscopy demonstrates the needle in the left sacroiliac joint. Patient's pain prior to procedure:04/04. Patient's pain following the procedure: 03/04. IMPRESSION: 1. Successful left sacroiliac joint injection of local anesthetic and steroid with decrease in the patient's presenting pain. Reviewed, dictated and finalized at location A. IESEL PLANT MANAGER IMPRESSION: 1. Successful left sacroiliac joint injection of local anesthetic and steroid w ith decrease in the patient's presenting pain.
--- OUTSIDE RECORDS SUMMARY | 2024-12-29 13:00 | XMS_ITS | Clinical Summary ---
Author Organization [facility] Address [facility] [place] [address] Care Team Providers Care Diagnostic Sales Specialist Name Role Phone Unavailable Primary Care Provider [...] of 2) 2008 COVID-19 Vaccine ( - 2024-2 6 season) 2024 Influenza Adult (#1) 2024 RSV Immunization or 60+ Years (1 - 1-dose 75+ series) 2033 Hepatitis A Vaccines Aged Out No long er eligible based on patient's age to complete this topic Meningococcal B Vaccine Aged Out No l onger eligible based on patient's age to complete this topic Meningococcal Vaccine Aged Out No tonia sarmad eligible based on patient's age to complete this topic RSV Immunizations Under 20 Months Aged Out No longer eligible based on patient's age to complete this topic
== END 2024-12-28 13:41 | disposition home or self-care (01) ==
PROVIDERS: PCP Internal Medicine; Visit Provider Internal Medicine
DX: M54.50 Low back pain, unspecified (principal)
CPT/HCPCS: 27096; G0260; J1100; J2003; J3301; Q9966

== ENCOUNTER 2025-01-17 07:10 | Outpatient (CLI) | payer MEDICARE, SELFPAY ==
--- NOTE | ~2025-01-17 | US_ITS ---
EXAMINATION: US aorta [facility] scrn DATE: 01/17/2025 07:40 INDICATION: High-risk abdominal aortic aneurysm screening with risk factors of hypertension, obesity, prior smoking and hypercholesterolemia. TECHNIQUE: Grayscale, color Doppler, and pulsed Doppler images of the aorta and common iliac arteries were obtained. COMPARISON: None. FINDINGS: The proximal aorta measures 2.1 cm. The mid aorta measures 2.0 cm. The distal aorta measures 1.6 cm. The right common iliac artery measures 1.1 cm. The left common iliac artery measures 1.1 cm. IMPRESSION: 1. Normal caliber abdominal aorta. Reviewed, dictated and finalized at location A. L OPERATIONS MANAGER
--- NOTE | ~2025-01-17 | XR_ITS ---
EXAMINATION: XR chest 2V DATE: 01/17/2025 07:42 INDICATION: Asbestos exposure TECHNIQUE: frontal and lateral views of the chest were obtained. COMPARISON: Chest radiograph dated 07/13/2014 FINDINGS: The lungs are clear with no focal airspace opacities, pulmonary edema, pleural effusion or pneumothorax. The cardiomediastinal silhouette is normal. Visualized bones and soft tissues are unremarkable. IMPRESSION: 1. No acute cardiopulmonary disease. Reviewed, dictated and finalized at location A. PRESSMAN ROTO GRAVURE PRINTING
--- OUTSIDE RECORDS SUMMARY | 2025-01-17 07:13 | XMS_ITS | Clinical Summary ---
Author Organization [facility] Address [facility] [place] [address] Care Team Providers Care Auction Block Clerk Name Role Phone Unavailable Primary Care Provider [...]
== END 2025-01-17 07:11 | disposition home or self-care (01) ==
PROVIDERS: PCP Internal Medicine; Visit Provider Internal Medicine
DX: Z13.6 Encounter for screening for cardiovascular disorders (principal); Z77.090 Contact with and (suspected) exposure to asbestos
CPT/HCPCS: 71046; 76706

== ENCOUNTER 2025-02-17 14:53 | Outpatient (CLI) | payer MEDICARE, SELFPAY ==
[2025-02-17 15:17] LABS: Hematocrit 41.1 % (37.0-46.0); Hemoglobin 13.5 g/dL (12.4-15.3); Mean Corpuscular HGB Conc 32.8 g/dL (32-36); Mean Corpuscular Hemoglobin 32.4 pg (27.0-31.0); Mean Corpuscular Volume 98.6 fL (78.0-102.0); Platelet Count Result 220 K/mm3 (150-420); Red Blood Count 4.17 M/mm3 (4.70-6.10); White Blood Count 10.9 K/mm3 (4.8-10.8)
[2025-02-17 15:33] LABS: Alanine Aminotransferase 40 U/L (6-50); Albumin Level 4.3 g/dL (3.5-5.1); Alkaline Phosphatase 60 U/L (38-126); Anion Gap 11 mmol/L (4-12); Aspartate Amino Transferase 29 U/L (17-59); Bilirubin,Total 0.6 mg/dL (0.2-1.3); Blood Urea Nitrogen 25 mg/dL (9-20); CRP 1.2 mg/dL (<1.0); Calcium 9.2 mg/dL (8.4-10.2); Carbon Dioxide 20 mmol/L (22-30); Chloride 113 mmol/L (98-107); Estimated Glomerular Filt Rate > 60; Glucose 133 mg/dL (65-110); Osmolality Calculated 304 mOsm/kg (285-295); Potassium 4.4 mmol/L (3.4-5.0); Sodium 144 mmol/L (137-145); Total Protein 6.6 g/dL (6.3-8.2)
== END 2025-02-17 14:54 | disposition home or self-care (01) ==
LOC: CHSLAB 14:56
PROVIDERS: PCP Internal Medicine; Visit Provider Internal Medicine
DX: M13.0 Polyarthritis, unspecified (principal); Z79.899 Other long term (current) drug therapy
CPT/HCPCS: 36415; 80053; 85027; 85652; 86140; 86803